=== PATIENT | female | born 1940 | race Two or more races ===

== ENCOUNTER 2018-01-21 17:06 | Emergency (ER) | payer MEDICARE ==
[~2018-01-21] VITALS: Ht 160 cm; Wt 67.0 kg
[2018-01-21 19:00] VITALS: BP 137/75
== END 2018-01-21 19:02 | disposition home or self-care (01) ==
LOC: ED 18:30
DX: I80.02 Phlebitis and thrombophlebitis of superficial vessels of left lower extremity (principal)
CPT/HCPCS: 99284